=== PATIENT | female | born 1995 | race Caucasian/White ===

== ENCOUNTER 2024-04-06 22:23 | Emergency (ER) | payer MEDICAID ==
[~2024-04-06] VITALS: Ht 162.6 cm; Wt 63.0 kg
[2024-04-06] MEDS ORDERED: ONDANSETRON HCL 4MG/2ML INJ IV ONE (22:30)
[2024-04-06 22:41] VITALS: O2SAT 96
[2024-04-06 23:20] LABS: BASOPHILS % 0.5 % (0.0-2.0); EOSINOPHILS % 0.1 % (0.0-5.0); HEMATOCRIT. 39.8 % (36.0-48.0); LYMPHOCYTES % 28.1 % (20.0-50.0); MEAN CORPUSCULAR HEMOGLOBIN 29.3 pg (28.0-32.0); MEAN CORPUSCULAR HGB CONC 32.6 g/dL (31.0-37.0); MEAN CORPUSCULAR VOLUME 89.8 fL (81.0-99.0); MEAN PLATELET VOLUME 7.6 fl (7.4-10.4); MONOCYTES % 5.9 % (2.0-8.0); NEUTROPHILS % 65.4 % (40.0-76.0); PLATELET 343 x1000/uL (130-400); RED BLOOD CELL COUNT 4.44 mill/uL (4.2-5.4); RED CELL DISTRIBUTION WIDTH 12.6 % (11.6-14.6); WHITE BLOOD COUNT 11.3 x1000/uL (4.5-11.0)
[2024-04-06 23:23] LABS: CHLORIDE 104 mEq/L (98-107); POTASSIUM 3.3 mEq/L (3.5-5.1); SODIUM 136 mEq/L (136-145)
[2024-04-06 23:24] LABS: CARBON DIOXIDE 23 mEq/L (21-32)
[2024-04-06 23:25] LABS: CALCIUM 9.1 mg/dL (8.7-10.4)
[2024-04-06 23:29] LABS: CREATININE 0.8 mg/dL (0.6-1.0)
[2024-04-06 23:30] LABS: ETHANOL BLOOD 298 mg/dL (<10); GLUCOSE 119 mg/dL (70-105); UREA NITROGEN BLOOD 9 mg/dL (9-23)
[2024-04-06 23:31] LABS: ALANINE AMINOTRANSFERASE 18 IU/L (10-49); ALBUMIN 4.7 g/dL (3.2-4.8); ASPARTATE AMINOTRANSFERASE 22 IU/L (<34)
[2024-04-06 23:32] LABS: BILIRUBIN DIRECT 0.1 mg/dL (<=3.0); BILIRUBIN TOTAL 0.4 mg/dL (0.1-1.0); PROTEIN TOTAL 7.8 g/dL (6.0-8.3)
[2024-04-07] MEDS: SODIUM CHLORIDE 0.9% 1,000 ML IV ONE ×2 (00:07→01:30)
[2024-04-07 00:11] LABS: HCG SCREEN NEGATIVE
[2024-04-07] MEDS: ONDANSETRON HCL 4MG/2ML INJ IV NR (00:24)
[2024-04-07] MEDS ORDERED: ONDA4TAB50 MT (02:17)
[2024-04-07 02:18] VITALS: BP 94/50; PULSE 82; RESP 18; O2SAT 100
== END 2024-04-07 02:33 | disposition home or self-care (01) ==
LOC: ER 22:23
DX: S00.83XA Contusion of other part of head, initial encounter (principal); F10.129 Alcohol abuse with intoxication, unspecified; W18.39XA Other fall on same level, initial encounter; Y93.89 Activity, other specified; Y92.89 Other specified places as the place of occurrence of the external cause; Y99.8 Other external cause status; Y90.8 Blood alcohol level of 240 mg/100 ml or more
CPT/HCPCS: 80076; 80048; 80320; 84703; 85025; 36415; 70450; 70486; 72125; 99285; 96361; 96374; J2405; J7030; Z7610; G0480